=== PATIENT | female | born 1960 | race African-American/Black ===

== ENCOUNTER 2016-12-12 03:46 | Emergency (ER) | payer BC ==
[~2016-12-12] VITALS: Ht 154.9 cm; Wt 82.5 kg
[~2016-12-12 03:46] MED LIST: AZIT500T3 PO
[2016-12-12 03:49] VITALS: Ht 154.9 cm; Wt 82.5 kg
--- NOTE | 2016-12-12 07:35 | ERD ---
ER Documentation Chief Complaint Date/Time DATE: 12/12/16 TIME: 07:34 Chief Complaint med refill HPI Patient is a 56-year-old female with psychiatric disease who presents saying that she is having urinary incontinence. She says that she has tried depends in the past and said that this is been going on for "a long time". She says that "it feels like something is violating my body". The patient says that she has had a child in the past. Upon review of old medical records the patient did have one previous visit to [facility] and review of the emergency department information exchange shows another visit to [facility] department on November 24. ROS All systems reviewed and are negative except as per history of present illness. Medications Home Meds Active Scripts Azithromycin* (Zithromax*) 500 Mg Tablet, 500 MG PO DAILY for 5 Days, TAB Prov:DOUGLAS MASSEYAman 10/20/15 Allergies Allergies: Coded Allergies: No Known Allergy (Unverified , 10/20/15) PMhx/Soc Hx Psychiatric Problems: Yes (SCHIZOPHRENIA) Hx Alcohol Use: No Hx Substance Use: No Hx Tobacco Use: No Smoking Status: Light tobacco smoker FmHx Family History: No diabetes Physical Exam Vitals Vital Signs Date Time Temp Pulse Resp B/P Pulse Ox O2 Delivery O2 Flow Rate FiO2 12/12/16 03:49 97.2 85 20 135/76 100 Physical Exam Const: No acute distress Head: Atraumatic Eyes: Normal Conjunctiva ENT: Normal External Ears, Nose and Mouth. Neck: Full range of motion..~ No meningismus. Resp: Clear to auscultation bilaterally Cardio: Regular rate and rhythm, no murmurs Abd: Soft, non tender, non distended. Normal bowel sounds Skin: No petechiae or rashes Back: No midline or flank tenderness Ext: No cyanosis, or edema Neur: Awake and alert Psych: No suicidal or homicidal ideation Procedures/MDM Patient is a 56-year-old female presents with urinary incontinence. I believe she would benefit from follow-up with urology. She has had a child in the past and given her age this is most likely stress incontinence. I believe that outpatient management is appropriate. I do not believe she requires further workup or admission to the hospital at this time. The patient can return for any worsening symptoms. She may need a pelvic floor tightening surgery versus medication but this could be prescribed by a urologist. Departure Diagnosis: Primary Impression: Urinary incontinence Urinary Incontinence type: unspecified incontinence Qualified Code: R32 - Urinary incontinence, unspecified type Condition: Fair Patient Instructions: Urinary Incontinence, Female (Adult) Referrals: MARY RAYMOND MD Additional Instructions: SPECIALIST: YOU HAVE A MEDICAL CONDITION WHICH REQUIRES YOU TO SEE A SPECIALIST WITHIN THE NEXT 1-2 DAYS. PLEASE FOLLOW UP WITH YOUR PRIMARY PHYSICIAN FOR REFFERAL.IF YOU DO NOT HAVE A PRIMARY CARE PHYSICIAN AND/OR YOU CAN NOT AFFORD TO SEE A PHYSICIAN THE FOLLOWING RESOURCES HAVE BEEN SUPPLIED TO YOU. IT IS YOUR RESPONSIBILITY TO BE SEEN BY THE SPECIALIST CLARKE VINSON MD Dec 12, 2016 07:35
== END 2016-12-12 06:45 | disposition home or self-care (01) ==
LOC: FTE 03:46
DX: R32 Unspecified urinary incontinence (principal); F17.210 Nicotine dependence, cigarettes, uncomplicated
CPT/HCPCS: 99282